=== PATIENT | male | born 1960 | race Caucasian/White ===

== ENCOUNTER → 2021-01-23 | Outpatient (CLI) | payer OTHER | END | disposition home or self-care (01) | LOC: RAD 06:37 | PROVIDERS: ATTEND Nurse Practitioner Family | DX: K22.8 Other specified diseases of esophagus (principal); K44.9 Diaphragmatic hernia without obstruction or gangrene; R13.14 Dysphagia, pharyngoesophageal phase | CPT/HCPCS: 74240 ==